=== PATIENT | female | born 1995 | race African-American/Black ===

== ENCOUNTER 2017-06-03 10:11 | Emergency (ER) | payer OTHER ==
[~2017-06-03] VITALS: Ht 170.2 cm; Wt 93.0 kg
[2017-06-03 11:20] LABS: INFLUENZA A NEG (NEG); INFLUENZA B NEG (NEG)
== END 2017-06-03 12:05 | disposition home or self-care (01) ==
LOC: CFTX 10:11 → CED 10:11 → CFTX 10:48 → CED 10:48 → CFTX 11:32 → CED 11:32 → CFTX 12:02
PROVIDERS: Physician Assistant
DX: J02.9 Acute pharyngitis, unspecified (principal); Z88.0 Allergy status to penicillin; Z88.6 Allergy status to analgesic agent
CPT/HCPCS: 87651; 87804; 99283